=== PATIENT | male | born 2000 | race Caucasian/White ===

== ENCOUNTER 2022-06-03 06:21 | Emergency (ER) | payer SELFPAY ==
[~2022-06-03] VITALS: Ht 172.7 cm; Wt 81.6 kg
--- NOTE | 2022-06-03 06:39 | NUR ---
Patient resting in bed with eyes closed. Easily wakened when spoken to.
--- NOTE | 2022-06-03 07:06 | NUR ---
Report given to Chen GRUBER.
[2022-06-03] MEDS ORDERED: IV NORMAL SALINE 1000 ML BAG IV ONE (07:15)
[2022-06-03 07:24] LABS: HEMATOCRIT 40.8 % (36.7-47.1); MEAN CORPUSCULAR HEMOGLOBIN 31.4 uug (23.8-33.4); MEAN CORPUSCULAR VOLUME 90.4 fL (73.0-96.2); PLATELET COUNT (AUTO) 263 K/uL (152-348)
--- NOTE | 2022-06-03 07:30 | NUR ---
Patient follows simple commands (e.g. "lift your head so I can put a pillow", "move to the side of the gurney"), respiration:easy, nonlabored, even, symmetrical), SpO2 levels=98%-100% room air, pending results and disposition.
[2022-06-03 07:40] LABS: ALANINE AMINOTRANSFERASE 25 U/L (16-63); ALKALINE PHOSPHATASE 115 U/L (50-136); ASPARTATE AMINOTRANSFERASE < 5 U/L (15-37); BILIRUBIN,DIRECT < 0.1 mg/dL (0.0-0.2); BILIRUBIN,TOTAL 0.2 mg/dL (0.2-1.0); CARBON DIOXIDE 31 mmol/L (21-32); CHLORIDE 105 mmol/L (98-107); CREATININE 0.9 mg/dL (0.6-1.3); GLUCOSE 102 mg/dL (74-106); POTASSIUM 3.8 mmol/L (3.5-5.1); TOTAL PROTEIN, SERUM 6.7 g/dL (6.4-8.2); UREA NITROGEN, BLOOD 12 mg/dL (7-18)
[2022-06-03 07:50] LABS: ETHANOL < 3 MG/DL (0-0)
[2022-06-03 08:05] LABS: ACETAMINOPHEN < 2.0 ug/mL (10-30)
--- NOTE | 2022-06-03 09:53 | NUR ---
Patient is now awake, Ox4, able to use the urinal, ambulates with slow steady gait. "I live in a sober living home. How did I get here?" per patient's verbalization
--- NOTE | 2022-06-03 10:12 | NUR ---
Patient discharged to home in stable condition with steady gait. Written and verbal after care instructions given. Patient verbalized understanding and compliance of instructions. Stressed follow up with primary doctor and addiction doctor or return to ER for worsening s/s.
[2022-06-03 10:21] LABS: *AMPHETAMINE, URINE NEGATIVE (NEGATIVE); *CANNABINOID, URINE POSITIVE (NEGATIVE); *COCCAINE, URINE NEGATIVE (NEGATIVE); *OPIATE, URINE NEGATIVE (NEGATIVE); *PHENCYCLIDINE SCREEN,URINE NEGATIVE (NEGATIVE)
== END 2022-06-03 10:17 | disposition home or self-care (01) ==
LOC: ER 06:25
DX: R41.82 Altered mental status, unspecified (principal)
CPT/HCPCS: 80076; 80048; 85025; 36415; 99284; 80299; 80320; 80307; J7040; A4663; G0480